=== PATIENT | male | born 1965 | race Caucasian/White ===

== ENCOUNTER 2017-04-26 12:30 | Inpatient (IN) | payer MEDICAID, OTHER ==
[~2017-04-26] VITALS: Ht 182.9 cm; Wt 65.8 kg
[2017-04-26] MEDS ORDERED: ASPI-986 PO (12:58)
[2017-04-26] MEDS ORDERED: DOCU-150 PO (12:58)
[2017-04-26] MEDS ORDERED: SITA100T6 PO (12:58)
[2017-04-26] MEDS ORDERED: INSULIN (12:58)
[2017-04-26 14:23] LABS: HEMATOCRIT. 27.3 % (42.0-52.0); HEMOGLOBIN. 8.8 g/dL (14.0-18.0); MEAN CORPUSCULAR HEMOGLOBIN 26.7 pg (28.0-32.0); MEAN CORPUSCULAR VOLUME 83.2 fL (80.0-94.0); PLATELET 345 x1000/uL (130-400); RED BLOOD CELL COUNT 3.28 mill/uL (4.7-6.1); RED CELL DISTRIBUTION WIDTH 14.8 % (11.6-14.6)
[2017-04-26 14:33] LABS: PARTIAL THROMBOPLASTIN TIME 30.6 sec (24.0-34.0); PROTHROMBIN TIME 9.9 sec
[2017-04-26 14:44] LABS: CARBON DIOXIDE 23 mEq/L (21-32); CHLORIDE 108 mEq/L (98-107)
[2017-04-26 15:07] LABS: CLARITY URINE CLEAR (CLEAR); COLOR URINE YELLOW (YELLOW); GLUCOSE URINE TRACE (NEGATIVE); KETONES URINE NEGATIVE (NEGATIVE); LEUKOCYTE ESTERASE URINE NEGATIVE (NEGATIVE); NITRITE URINE NEGATIVE (NEGATIVE); OCCULT BLOOD URINE NEGATIVE (NEGATIVE); PROTEIN URINE 2+ (NEGATIVE); SPECIFIC GRAVITY URINE 1.024 (1.005-1.030); UROBILINOGEN URINE 0.2 E.U./dL (0.2-1.0)
[2017-04-26] MEDS ORDERED: AMPICILLIN SOD/SULBACTAM NA 3 G in SODIUM CHLORIDE 0.9% 100 ML IV SCH (15:15)
[2017-04-26] MEDS ORDERED: CLONIDINE 0.1MG TABLET PO PRN (16:00)
[2017-04-26] MEDS ORDERED: DOCUSATE SODIUM 100MG CAPSULE PO PRN (16:00)
[2017-04-26] MEDS ORDERED: MAGNESIUM/ALUMINUM HYDROXIDE/SIMETHICONE 30ML UDC PO PRN (16:00)
[2017-04-26] MEDS ORDERED: ONDANSETRON HCL 4MG/2ML VIAL IV PRN (16:00)
[2017-04-26] MEDS ORDERED: IPRATROPIUM/ALBUTEROL 0.5-3(2.5)MG/3ML NEB INH PRN (16:00)
[2017-04-26 17:15] LABS: CARBON DIOXIDE 22 mEq/L (21-32); CHLORIDE 110 mEq/L (98-107)
[2017-04-26 17:30] LABS: PLATELET ESTIMATE NORMAL
[2017-04-26 18:55] VITALS: BP 148/88
[2017-04-26 20:00] VITALS: BP_SYST 122; BP_SYST 133; BP_DIAS 78
[2017-04-26] MEDS ORDERED: DEXTROSE 50% WATER 50ML SYRINGE IV PRN ×2 (20:15→22:45)
[2017-04-26] MEDS: ENOXAPARIN 40MG/0.4ML SYR SUBCUT SCH (20:42)
[2017-04-26] MEDS ORDERED: GABA-531 PO (20:45)
[2017-04-26] MEDS ORDERED: AMOX125S8 PO (20:46)
[2017-04-26] MEDS ORDERED: ZOLP10TA2 PO (20:49)
[2017-04-26] MEDS ORDERED: FERR-63 PO (20:50)
[2017-04-26] MEDS: INSULIN LISPRO 100 UNITS/ML SUBCUT SCH (21:00)
[2017-04-26] MEDS: BLOOD SUGAR DIAGNOSTIC STRIP TEST SCH (21:00)
[2017-04-26] MEDS: VANCOMYCIN 1250MG in DEXTROSE 5% WATER 250ML IV SCH (22:26)
[2017-04-26] MEDS: SODIUM CHLORIDE 0.9% 1,000 ML IV SCH (22:28)
[2017-04-26] MEDS ORDERED: INSULIN LISPRO 100 UNITS/ML SUBCUT SCH (22:30)
[2017-04-26 23:01] LABS: CLARITY URINE CLEAR (CLEAR); COLOR URINE YELLOW (YELLOW); GLUCOSE URINE NEGATIVE (NEGATIVE); KETONES URINE NEGATIVE (NEGATIVE); LEUKOCYTE ESTERASE URINE NEGATIVE (NEGATIVE); NITRITE URINE NEGATIVE (NEGATIVE); OCCULT BLOOD URINE TRACE (NEGATIVE); PROTEIN URINE 2+ (NEGATIVE); SPECIFIC GRAVITY URINE 1.021 (1.005-1.030); UROBILINOGEN URINE 0.2 E.U./dL (0.2-1.0)
[2017-04-26 23:31] LABS: *AMPHETAMINES SCREEN URINE NEGATIVE (NEGATIVE); *BARBITURATES SCREEN URINE NEGATIVE (NEGATIVE); *BENZODIAZEPINES SCREEN URINE NEGATIVE (NEGATIVE); *COCAINE SCREEN URINE PRESUMTIVE POSITIVE (NEGATIVE); CANNABINOID URINE SCREEN NEGATIVE (NEGATIVE); METHADONE URINE SCREEN NEGATIVE (NEGATIVE); OPIATES URINE SCREEN NEGATIVE (NEGATIVE); PHENCYCLIDINE URINE SCREEN NEGATIVE (NEGATIVE)
[2017-04-27] VITALS (7 sets, daily range): BP systolic 122–154; BP diastolic 73–94
[2017-04-27] MEDS: PIPERACILLIN/TAZ 3.375G PREMIX 50 ML IV SCH ×5 (00:34→23:11)
[2017-04-27] MEDS: ACETAMINOPHEN 325MG TABLET PO PRN (01:58)
[2017-04-27] MEDS: BLOOD SUGAR DIAGNOSTIC STRIP TEST SCH ×4 (06:37→21:08)
[2017-04-27 06:45] LABS: BASOPHILS % 0.9 % (0.0-2.0); EOSINOPHILS % 1.6 % (0.0-5.0); HEMATOCRIT. 26.9 % (42.0-52.0); HEMOGLOBIN. 8.8 g/dL (14.0-18.0); LYMPHOCYTES % 15.3 % (20.0-50.0); MEAN CORPUSCULAR VOLUME 82.9 fL (80.0-94.0); MEAN PLATELET VOLUME 8.3 fl (7.4-10.4); MONOCYTES % 8.8 % (2.0-8.0); NEUTROPHILS % 73.4 % (40.0-76.0); PLATELET 324 x1000/uL (130-400); RED BLOOD CELL COUNT 3.25 mill/uL (4.7-6.1); RED CELL DISTRIBUTION WIDTH 14.9 % (11.6-14.6)
[2017-04-27] MEDS: INSULIN LISPRO 100 UNITS/ML SUBCUT SCH ×4 (07:50→21:13)
[2017-04-27] MEDS ORDERED: AMOXICILLIN 125 MG/5 ML 100 ML BOTTLE PO SCH (09:00)
[2017-04-27] MEDS: ASPIRIN 325MG TABLET PO SCH (09:32)
[2017-04-27] MEDS: VANCOMYCIN 1250MG in DEXTROSE 5% WATER 250ML IV SCH ×2 (09:32→21:08)
[2017-04-27] MEDS: DOCUSATE SODIUM 100MG CAPSULE PO SCH (09:33)
[2017-04-27] MEDS: GABAPENTIN 300MG CAPSULE PO SCH ×3 (09:33→17:38)
[2017-04-27] MEDS: FERROUS SULFATE 325MG TABLET PO SCH (09:33)
[2017-04-27] MEDS: SODIUM CHLORIDE 0.9% 1,000 ML IV SCH ×2 (09:34→21:08)
[2017-04-27] MEDS: HYDROCODONE/ACETAMINOPHEN 5/325MG TABLET PO PRN ×2 (09:34→19:46)
[2017-04-27] MEDS ORDERED: MEDICATION NOT ON FORMULARY EA (Zolpidem Tartrate (Ambien Pak) 10 MG) PO SCH (10:45)
[2017-04-27] MEDS ORDERED: TETANUS, DIPHTHERIA, PERTUSSIS VAC/PF 0.5ML (>7YR OLD) IM ONE (16:15)
[2017-04-27] MEDS: ENOXAPARIN 40MG/0.4ML SYR SUBCUT SCH (17:38)
[2017-04-27] MEDS ORDERED: BLOOD SUGAR DIAGNOSTIC STRIP TEST SCH (22:30)
[2017-04-27] MEDS: ZOLPIDEM TARTRATE 5MG TABLET PO PRN (23:11)
[2017-04-28] VITALS: BP 138/79
[2017-04-28] MEDS: PIPERACILLIN/TAZ 3.375G PREMIX 50 ML IV SCH ×4 (06:12→23:56)
[2017-04-28] MEDS: ACETAMINOPHEN 325MG TABLET PO PRN (06:38)
[2017-04-28] MEDS: BLOOD SUGAR DIAGNOSTIC STRIP TEST SCH ×4 (06:39→21:31)
[2017-04-28] MEDS: INSULIN LISPRO 100 UNITS/ML SUBCUT SCH ×4 (07:50→21:00)
[2017-04-28 08:00] VITALS: BP 121/71
[2017-04-28] MEDS: ASPIRIN 325MG TABLET PO SCH (08:49)
[2017-04-28] MEDS: GABAPENTIN 300MG CAPSULE PO SCH ×3 (08:49→18:31)
[2017-04-28] MEDS: VANCOMYCIN 1250MG in DEXTROSE 5% WATER 250ML IV SCH ×2 (08:49→21:26)
[2017-04-28] MEDS: DOCUSATE SODIUM 100MG CAPSULE PO SCH (08:49)
[2017-04-28] MEDS: FERROUS SULFATE 325MG TABLET PO SCH (08:49)
[2017-04-28] MEDS: SODIUM CHLORIDE 0.9% 1,000 ML IV SCH (10:11)
[2017-04-28 12:00] VITALS: BP 122/70
[2017-04-28 16:00] VITALS: BP 124/76
[2017-04-28] MEDS: ENOXAPARIN 40MG/0.4ML SYR SUBCUT SCH (18:32)
[2017-04-28] MEDS: HYDROCODONE/ACETAMINOPHEN 5/325MG TABLET PO PRN ×2 (18:33→21:24)
[2017-04-28 20:00] VITALS: BP 101/75
[2017-04-28] MEDS: SILVER SULFADIAZINE 1% CREAM 50GM TOP SCH (21:00)
[2017-04-28] MEDS: ZOLPIDEM TARTRATE 5MG TABLET PO PRN (23:55)
[2017-04-29] VITALS: BP 123/74
[2017-04-29] MEDS: SODIUM CHLORIDE 0.9% 1,000 ML IV SCH (06:27)
[2017-04-29] MEDS: PIPERACILLIN/TAZ 3.375G PREMIX 50 ML IV SCH ×2 (06:27→12:06)
[2017-04-29] MEDS: BLOOD SUGAR DIAGNOSTIC STRIP TEST SCH ×2 (06:28→12:06)
[2017-04-29] MEDS: INSULIN LISPRO 100 UNITS/ML SUBCUT SCH ×2 (07:34→13:24)
[2017-04-29 08:00] VITALS: BP 123/77
[2017-04-29] MEDS: GABAPENTIN 300MG CAPSULE PO SCH ×2 (08:30→13:21)
[2017-04-29] MEDS: VANCOMYCIN 1250MG in DEXTROSE 5% WATER 250ML IV SCH (08:30)
[2017-04-29] MEDS: FERROUS SULFATE 325MG TABLET PO SCH (08:30)
[2017-04-29] MEDS: ASPIRIN 325MG TABLET PO SCH (08:30)
[2017-04-29] MEDS: DOCUSATE SODIUM 100MG CAPSULE PO SCH (08:30)
[2017-04-29 11:49] LABS: FOLIC ACID (FOLATE) SERUM 10.2 ng/mL (>5.38)
[2017-04-29 12:00] VITALS: BP 116/73
[2017-04-29 12:53] VITALS: BP 123/77
[2017-04-29 13:35] LABS: CARCINO EMBRYONIC ANTIGEN 2.5 ng/ml
[2017-04-29] MEDS: SILVER SULFADIAZINE 1% CREAM 50GM TOP SCH (14:22)
== END 2017-04-29 15:25 | disposition home health service (06) | DRG 720 ==
LOC: ER 12:30 → 6EST 15:09 → EDBEDREQ 15:47 → EDBEDREQTM 15:47 → ENRESERV 16:12
PROVIDERS: ADMIT Internal Medicine; ATTEND Internal Medicine
PROC: 0JBQ0ZZ Excision of Right Foot Subcutaneous Tissue and Fascia, Open Approach (ICD-10-PCS; principal; 2017-04-28)
DX: A41.9 Sepsis, unspecified organism (principal); E11.42 Type 2 diabetes mellitus with diabetic polyneuropathy; F03.90 Unspecified dementia, unspecified severity, without behavioral disturbance, psychotic disturbance, mood disturbance, and anxiety; E11.621 Type 2 diabetes mellitus with foot ulcer; D50.9 Iron deficiency anemia, unspecified; F14.90 Cocaine use, unspecified, uncomplicated; L89.899 Pressure ulcer of other site, unspecified stage; E44.1 Mild protein-calorie malnutrition; L03.115 Cellulitis of right lower limb; D63.8 Anemia in other chronic diseases classified elsewhere; G47.00 Insomnia, unspecified; Z81.8 Family history of other mental and behavioral disorders; Z79.84 Long term (current) use of oral hypoglycemic drugs; Z79.4 Long term (current) use of insulin; Z87.891 Personal history of nicotine dependence; Z79.82 Long term (current) use of aspirin; Z79.899 Other long term (current) drug therapy; Z89.422 Acquired absence of other left toe(s); Z68.1 Body mass index [BMI] 19.9 or less, adult; M86.9 Osteomyelitis, unspecified
CPT/HCPCS: 36415; 71010; 73630; 73721; 80048; 80053; 80061; 80202; 80305; 81001; 82378; 82607; 82728; 82746; 82962; 83036; 83540; 83550; 83605; 84443; 85025; 85044; 85610; 85651; 85730; 86140; 87040; 87070; 87077; 87086; 87205; 90715; 93970; 99285; A6261; J0295; J1650; J1815; J2405; J2543; J3370; J7030; J7040; J7050; J7060

== ENCOUNTER 2017-05-18 14:14 | Emergency (ER) | payer OTHER ==
[~2017-05-18] VITALS: Ht 182.9 cm; Wt 63.0 kg
[~2017-05-18 14:14] MED LIST: ASPI-986 PO; DOCU-150 PO; FERR-63 PO; GABA-531 PO; INSULIN; SITA100T6 PO; ZOLP10TA2 PO
[2017-05-18] MEDS ORDERED: SODIUM CHLORIDE 0.9% 1,000 ML IV ONE (14:45)
[2017-05-18 15:44] LABS: BASOPHILS % 1.2 % (0.0-2.0); EOSINOPHILS % 3.7 % (0.0-5.0); HEMATOCRIT. 25.9 % (42.0-52.0); HEMOGLOBIN. 8.5 g/dL (14.0-18.0); LYMPHOCYTES % 15.9 % (20.0-50.0); MEAN CORPUSCULAR HEMOGLOBIN 26.8 pg (28.0-32.0); MEAN CORPUSCULAR VOLUME 81.8 fL (80.0-94.0); MEAN PLATELET VOLUME 8.2 fl (7.4-10.4); MONOCYTES % 6.1 % (2.0-8.0); NEUTROPHILS % 73.1 % (40.0-76.0); PLATELET 317 x1000/uL (130-400); RED BLOOD CELL COUNT 3.17 mill/uL (4.7-6.1); RED CELL DISTRIBUTION WIDTH 16.3 % (11.6-14.6)
[2017-05-18 15:45] LABS: PROTHROMBIN TIME 10.4 sec
[2017-05-18 15:46] LABS: CHLORIDE 107 mEq/L (98-107)
[2017-05-18 15:49] LABS: CARBON DIOXIDE 23 mEq/L (21-32); ETHANOL BLOOD < 10 mg/dL
[2017-05-18 15:54] LABS: TROPONIN I < 0.02 ng/mL (0.00-0.04)
[2017-05-18 17:21] VITALS: BP 161/96
== END 2017-05-18 18:38 | disposition home or self-care (01) ==
LOC: CANBEDREQ 17:38 → ER 18:13
DX: E86.0 Dehydration (principal); I95.9 Hypotension, unspecified; D64.9 Anemia, unspecified; F14.10 Cocaine abuse, uncomplicated; E11.9 Type 2 diabetes mellitus without complications; Z79.4 Long term (current) use of insulin; Z89.421 Acquired absence of other right toe(s)
CPT/HCPCS: 36415; 71010; 80053; 83605; 83880; 84484; 85025; 85610; 87040; 93005; 96360; 99285; G0482; J7030; Z7610

== ENCOUNTER 2017-06-14 11:01 | Emergency (ER) | payer OTHER ==
[~2017-06-14] VITALS: Ht 182.9 cm; Wt 68.0 kg
[~2017-06-14 11:01] MED LIST changes: +SITA100T11 PO; -SITA100T6 PO
[2017-06-14] MEDS: BACITRACIN ZINC OINT UDPKT TOP ONE (14:30)
[2017-06-14 16:05] VITALS: BP 125/64
== END 2017-06-14 16:06 | disposition home or self-care (01) ==
LOC: ER 11:16
DX: M79.671 Pain in right foot (principal); M54.9 Dorsalgia, unspecified; E11.9 Type 2 diabetes mellitus without complications; F14.10 Cocaine abuse, uncomplicated; Z79.82 Long term (current) use of aspirin
CPT/HCPCS: 99283; Z7610

== ENCOUNTER 2023-12-17 17:53 | Inpatient (IN) | payer OTHER ==
[~2023-12-17] VITALS: Ht 182.9 cm; Wt 54.4 kg
[~2023-12-17 17:53] MED LIST changes: -GABA-531 PO; +GABA-532 PO
[2023-12-17 17:58] VITALS: O2SAT 95
[2023-12-17 18:38] LABS: CLARITY URINE CLEAR (CLEAR); COLOR URINE YELLOW (YELLOW); GLUCOSE URINE 3+ (NEGATIVE); KETONES URINE NEGATIVE (NEGATIVE); LEUKOCYTE ESTERASE URINE NEGATIVE (NEGATIVE); NITRITE URINE NEGATIVE (NEGATIVE); OCCULT BLOOD URINE NEGATIVE (NEGATIVE); PH URINE 5.5 (4.5-8.0); PROTEIN URINE 1+ (NEGATIVE); SPECIFIC GRAVITY URINE 1.025 (1.005-1.030)
[2023-12-17 18:56] LABS: BACTERIA URINE NONE SEEN; RBC URINE 0-2 /hpf (0-2); SQUAMOUS EPITHELIAL CELL URINE 1+ /lpf (RARE/1+); WBC URINE 0-2 /hpf (0-2)
[2023-12-17 20:14] LABS: BASOPHILS % 1.1 % (0.0-2.0); EOSINOPHILS % 1.5 % (0.0-5.0); HEMATOCRIT. 37.3 % (42.0-52.0); HEMOGLOBIN. 12.6 g/dL (14.0-18.0); LYMPHOCYTES % 10.8 % (20.0-50.0); MEAN CORPUSCULAR HGB CONC 33.8 g/dL (31.0-37.0); MEAN CORPUSCULAR VOLUME 88.8 fL (80.0-94.0); MEAN PLATELET VOLUME 8.4 fl (7.4-10.4); MONOCYTES % 7.3 % (2.0-8.0); NEUTROPHILS % 79.3 % (40.0-76.0); PLATELET 332 x1000/uL (130-400); RED CELL DISTRIBUTION WIDTH 12.9 % (11.6-14.6); WHITE BLOOD COUNT 9.6 x1000/uL (4.5-11.0)
[2023-12-17 20:28] LABS: ALANINE AMINOTRANSFERASE 8 IU/L (10-49); ALBUMIN 4.3 g/dL (3.2-4.8); ASPARTATE AMINOTRANSFERASE 12 IU/L (<34); BILIRUBIN TOTAL 0.3 mg/dL (0.1-1.0); CALCIUM 9.1 mg/dL (8.7-10.4); CARBON DIOXIDE 28 mEq/L (21-32); CHLORIDE 99 mEq/L (98-107); CREATININE 2.4 mg/dL (0.6-1.3); POTASSIUM 4.7 mEq/L (3.5-5.1); SODIUM 134 mEq/L (136-145); UREA NITROGEN BLOOD 24 mg/dL (9-23)
[2023-12-17 20:30] LABS: GLUCOSE 365 mg/dL (70-105)
[2023-12-18] MEDS: PIPERACILLIN/TAZO 3.375G/50ML 50 ML IV NR (00:11)
[2023-12-18] MEDS: GABAPENTIN 300MG CAPSULE PO ONE (00:17)
[2023-12-18] MEDS: VANCOMYCIN 1G PREMIX 200 ML IV NR (00:44)
[2023-12-18] MEDS: HYDROCODONE/ACETAMINOPHEN 10/325MG TABLET PO PRN (03:11)
[2023-12-18] MEDS: BLOOD SUGAR DIAGNOSTIC STRIP TEST SCH (09:22)
[2023-12-18] MEDS: INSULIN LISPRO 100 UNITS/ML SUBCUT SCH (09:23)
[2023-12-18] MEDS: AMLODIPINE 10MG TABLET PO SCH (09:34)
[2023-12-18] MEDS: INSULIN GLARGINE 100 UNITS/ML SUBCUT SCH (09:35)
[2023-12-18 12:00] VITALS: BP 101/62; PULSE 60; RESP 20; TEMP 97.9
[2023-12-18] MEDS: PIPERACILLIN/TAZO 3.375G/50ML 50 ML IV SCH (12:03)
[2023-12-18] MEDS: GABAPENTIN 300MG CAPSULE PO SCH (14:43)
[2023-12-18] MEDS: VANCOMYCIN 500MG/100ML IV NR (15:42)
[2023-12-18 16:00] VITALS: BP 101/62; PULSE 60; RESP 20; TEMP 98
[2023-12-18 16:37] VITALS: BP 149/98; PULSE 67; RESP 18; TEMP 97.8
[2023-12-18 20:00] VITALS: BP 134/81; PULSE 69; RESP 20; TEMP 98.1
[2023-12-18] MEDS: ATORVASTATIN CALCIUM 40MG TABLET PO SCH (21:27)
[2023-12-18] MEDS: DEXTROSE 50% WATER 50ML SYRINGE IV PRN (22:32)
[2023-12-18] MEDS: DEXT 5%/0.45% NACL 1000ML 1,000 ML IV SCH (23:00)
[2023-12-19] VITALS: BP 112/66; PULSE 69; RESP 18; TEMP 95.1
[2023-12-19] MEDS ORDERED: GABA800T97 MT (02:38)
[2023-12-19 04:00] VITALS: BP 122/73; PULSE 62; RESP 18; TEMP 97.9
[2023-12-19] MEDS: GABAPENTIN 400MG CAPSULE PO SCH (04:12)
[2023-12-19] MEDS ORDERED: POLYMYXIN B SULFATE 500000 UNITS/VIAL ONE (07:10)
[2023-12-19] MEDS ORDERED: BUPIVACAINE HCL/PF 0.5% (5MG/ML) 10ML ONE (07:10)
[2023-12-19] MEDS ORDERED: LIDOCAINE HCL 1% 20ML VIAL (Pyxis) INJ ONE (07:10)
[2023-12-19] MEDS ORDERED: LIDOCAINE HCL 1% 10 MG/ML 10ML VIAL ONE (07:27)
[2023-12-19] MEDS ORDERED: PROPOFOL 200MG/20ML VIAL IV ONE (07:27)
[2023-12-19] MEDS ORDERED: DEXAMETHASONE 4MG/ML 1ML VIAL ONE (07:27)
[2023-12-19] MEDS ORDERED: ONDANSETRON HCL 4MG/2ML INJ ONE (07:27)
[2023-12-19] MEDS ORDERED: METOCLOPRAMIDE HCL 10MG/2ML VIAL ONE (07:27)
[2023-12-19] MEDS ORDERED: FENTANYL CITRATE/PF 50MCG/ML 2ML VIAL ONE (07:27)
[2023-12-19 07:28] LABS: ALANINE AMINOTRANSFERASE < 7 IU/L (10-49); ALBUMIN 3.6 g/dL (3.2-4.8); ASPARTATE AMINOTRANSFERASE 11 IU/L (<34); BILIRUBIN TOTAL 0.3 mg/dL (0.1-1.0); CALCIUM 8.8 mg/dL (8.7-10.4); CARBON DIOXIDE 31 mEq/L (21-32); CHLORIDE 100 mEq/L (98-107); CREATININE 1.8 mg/dL (0.6-1.3); GLUCOSE 274 mg/dL (70-105); POTASSIUM 4.5 mEq/L (3.5-5.1); PROTEIN TOTAL 6.8 g/dL (6.0-8.3); SODIUM 136 mEq/L (136-145); UREA NITROGEN BLOOD 23 mg/dL (9-23)
[2023-12-19] MEDS ORDERED: CEFAZOLIN SODIUM 1000MG/VIAL ONE (07:42)
[2023-12-19] MEDS ORDERED: NALOXONE HCL 0.4MG/ML VIAL IV PRN (08:30)
[2023-12-19] MEDS ORDERED: FENTANYL CITRATE/PF 50MCG/ML 2ML VIAL IV PRN (09:00)
[2023-12-19] MEDS: FOLIC ACID 1MG TABLET PO SCH (10:09)
[2023-12-19] MEDS: ASPIRIN 81MG TABLET PO SCH (10:09)
[2023-12-19] MEDS: VANCOMYCIN 1GM/200ML PMX (BAXTER) IV SCH (13:03)
[2023-12-19] MEDS ORDERED: PIPERACILLIN/TAZO 3.375G/50ML 50 ML IV SCH (15:00)
[2023-12-19 15:27] VITALS: BP 106/63; PULSE 79; RESP 19; TEMP 97.9
[2023-12-19] MEDS ORDERED: AMOX1TAB16 MT (18:48)
[2023-12-19] MEDS: PIPERACILLIN/TAZO 3.375G/50ML 50 ML IV SCH (19:02)
[2023-12-19 20:00] VITALS: BP 102/63; PULSE 83; RESP 20; TEMP 98.8
[2023-12-19] MEDS: INSULIN GLARGINE 100 UNITS/ML SUBCUT SCH (21:22)
[2023-12-20] VITALS: BP 103/63; PULSE 81; RESP 20; TEMP 100
[2023-12-20] MEDS: ZOLPIDEM TARTRATE 5MG TABLET PO PRN (01:52)
[2023-12-20 04:00] VITALS: BP 116/68; PULSE 71; RESP 20; TEMP 99.3
[2023-12-20 06:47] LABS: CALCIUM 8.4 mg/dL (8.7-10.4); CREATININE 1.4 mg/dL (0.6-1.3); POTASSIUM 3.8 mEq/L (3.5-5.1)
[2023-12-20 08:00] VITALS: BP 135/75; PULSE 69; RESP 19; TEMP 98.2
== END 2023-12-20 15:48 | disposition home health service (06) | DRG 383 ==
LOC: ER 17:53 → 6EST 12-18 01:48
PROVIDERS: ADMIT Internal Medicine; ATTEND Internal Medicine
PROC: 0Y9M0ZX Drainage of Right Foot, Open Approach, Diagnostic (ICD-10-PCS; principal; 2023-12-19)
DX: L03.115 Cellulitis of right lower limb (principal); N17.0 Acute kidney failure with tubular necrosis; E11.621 Type 2 diabetes mellitus with foot ulcer; D64.9 Anemia, unspecified; I10 Essential (primary) hypertension; Z20.822 Contact with and (suspected) exposure to COVID-19; Z79.82 Long term (current) use of aspirin; Z79.84 Long term (current) use of oral hypoglycemic drugs; Z79.899 Other long term (current) drug therapy; Z85.038 Personal history of other malignant neoplasm of large intestine
CPT/HCPCS: 36415; 73630; 73721; 80048; 80053; 80202; 81003; 82962; 83036; 85025; 87070; 87075; 87077; 87106; 87116; 87186; 87426; 93005; 97022; 97161; 99285; J0690; J1100; J1815; J2405; J2543; J2704; J2765; J3010; J3370; J3490; J7030

== ENCOUNTER 2024-01-03 18:54 | Emergency (ER) | payer OTHER ==
[~2024-01-03] VITALS: Ht 182.9 cm; Wt 68.0 kg
[~2024-01-03 18:54] MED LIST changes: +AMOX1TAB16 MT; -GABA-532 PO; +GABA800T97 MT
[2024-01-03 18:58] VITALS: BP 158/97; PULSE 91; RESP 16; TEMP 98.8; O2SAT 100
[2024-01-03 20:37] LABS: BASOPHILS % 1.1 % (0.0-2.0); EOSINOPHILS % 1.9 % (0.0-5.0); HEMATOCRIT. 38.1 % (42.0-52.0); HEMOGLOBIN. 12.6 g/dL (14.0-18.0); LYMPHOCYTES % 10.3 % (20.0-50.0); MEAN CORPUSCULAR HEMOGLOBIN 29.5 pg (28.0-32.0); MEAN CORPUSCULAR HGB CONC 33.1 g/dL (31.0-37.0); MEAN PLATELET VOLUME 8.7 fl (7.4-10.4); MONOCYTES % 6.7 % (2.0-8.0); PLATELET 233 x1000/uL (130-400); RED BLOOD CELL COUNT 4.28 mill/uL (4.7-6.1); RED CELL DISTRIBUTION WIDTH 14.4 % (11.6-14.6); WHITE BLOOD COUNT 8.8 x1000/uL (4.5-11.0)
[2024-01-03 20:46] LABS: ALANINE AMINOTRANSFERASE 8 IU/L (10-49); ALBUMIN 4.6 g/dL (3.2-4.8); ASPARTATE AMINOTRANSFERASE 19 IU/L (<34); BILIRUBIN TOTAL 0.4 mg/dL (0.1-1.0); CALCIUM 9.3 mg/dL (8.7-10.4); CARBON DIOXIDE 27 mEq/L (21-32); CHLORIDE 105 mEq/L (98-107); CREATININE 1.6 mg/dL (0.6-1.3); GLUCOSE 100 mg/dL (70-105); POTASSIUM 4.5 mEq/L (3.5-5.1); SODIUM 138 mEq/L (136-145); UREA NITROGEN BLOOD 18 mg/dL (9-23)
== END 2024-01-03 23:17 | disposition home or self-care (01) ==
LOC: ER 18:54
DX: M79.89 Other specified soft tissue disorders (principal); D64.9 Anemia, unspecified; E11.9 Type 2 diabetes mellitus without complications; I10 Essential (primary) hypertension; F14.10 Cocaine abuse, uncomplicated; Z79.899 Other long term (current) drug therapy
CPT/HCPCS: 36415; 73630; 80053; 85025; 85651; 99284

== ENCOUNTER 2024-01-07 14:55 | Emergency (ER) | payer OTHER ==
[~2024-01-07] VITALS: Ht 182.9 cm; Wt 70.8 kg
[2024-01-07 15:01] VITALS: BP 110/75; RESP 16; TEMP 98.4; O2SAT 100
[2024-01-07 15:05] VITALS: PULSE 89
[2024-01-08] MEDS ORDERED: CARB100C9 MT (08:21)
== END 2024-01-07 17:35 | disposition left against medical advice (07) ==
LOC: ER 14:55
DX: M79.671 Pain in right foot (principal); Z53.21 Procedure and treatment not carried out due to patient leaving prior to being seen by health care provider
CPT/HCPCS: 99281

== ENCOUNTER 2024-01-08 05:11 | Emergency (ER) | payer OTHER ==
[~2024-01-08] VITALS: Ht 182.9 cm; Wt 71.0 kg
[2024-01-08 06:07] VITALS: O2SAT 100
[2024-01-08] MEDS ORDERED: CARB100C9 MT (08:21)
[2024-01-08] MEDS: CARBAMAZEPINE 100MG TABLET CHEW PO ONE (08:34)
[2024-01-08 08:40] VITALS: BP 145/90; PULSE 77; RESP 18; TEMP 98.2
== END 2024-01-09 11:46 | disposition home or self-care (01) ==
LOC: ER 05:11
DX: G50.0 Trigeminal neuralgia (principal); D64.9 Anemia, unspecified; E11.9 Type 2 diabetes mellitus without complications; F14.10 Cocaine abuse, uncomplicated; Z98.890 Other specified postprocedural states; Z79.899 Other long term (current) drug therapy
CPT/HCPCS: 99283

== ENCOUNTER 2025-09-18 15:05 | Emergency (ER) | payer OTHER ==
[~2025-09-18] VITALS: Ht 182.9 cm; Wt 80.0 kg
[~2025-09-18 15:05] MED LIST changes: +CARB100C9 MT; -DOCU-150 PO; +DOCU-422 PO
[2025-09-18 15:08] VITALS: O2SAT 98
[2025-09-18] MEDS: LIDOCAINE HCL 1% 20ML VIAL INFIL ONE (15:15)
[2025-09-18] MEDS: IOHEXOL-350 100 ML BOTTLE ONE (15:40)
[2025-09-18] MEDS: MORPHINE SULFATE 4 MG/ML INJ (FOR IV/IM USE) IV ONE (15:48)
[2025-09-18] MEDS: SODIUM CHLORIDE 0.9% 1,000 ML IV ONE (15:49)
[2025-09-18] MEDS: SODIUM CHLORIDE 0.9% 2,000 ML IV ONE (15:50)
[2025-09-18] MEDS: TETANUS, DIPHTHERIA, PERTUSSIS VAC/PF 0.5ML (>10YR OLD) IM ONE (15:50)
[2025-09-18] MEDS: FENTANYL CITRATE/PF 50MCG/ML 2ML VIAL IV ONE (16:13)
[2025-09-18 16:21] LABS: BASOPHILS % 0.7 % (0.0-2.0); EOSINOPHILS % 1.5 % (0.0-5.0); HEMATOCRIT. 42.1 % (42.0-52.0); HEMOGLOBIN. 14.6 g/dL (14.0-18.0); LYMPHOCYTES % 13.8 % (20.0-50.0); MEAN PLATELET VOLUME 8.2 fl (7.4-10.4); MONOCYTES % 6.0 % (2.0-8.0); NEUTROPHILS % 78.0 % (40.0-76.0); PLATELET 179 x1000/uL (130-400); RED BLOOD CELL COUNT 4.52 mill/uL (4.7-6.1); RED CELL DISTRIBUTION WIDTH 13.1 % (11.6-14.6)
[2025-09-18 16:32] LABS: CREATININE 1.4 mg/dL (0.6-1.3)
[2025-09-18 16:33] LABS: ETHANOL BLOOD < 10 mg/dL (<10); PROTEIN TOTAL 7.1 g/dL (6.0-8.3); UREA NITROGEN BLOOD 17 mg/dL (9-23)
[2025-09-18 16:34] LABS: ASPARTATE AMINOTRANSFERASE 63 IU/L (<34); INR 0.9
[2025-09-18 16:35] LABS: BILIRUBIN DIRECT 0.2 mg/dL (<=3.0); BILIRUBIN TOTAL 0.6 mg/dL (0.1-1.0)
[2025-09-18 16:39] LABS: TROPONIN I HIGH SENSITIVITY 71 ng/L (3.0-53)
[2025-09-18 18:00] VITALS: BP 153/106; PULSE 100; RESP 20; TEMP 36.8; O2SAT 97
[2025-09-18] MEDS ORDERED: IBUP-1455 MT (18:11)
[2025-09-18] MEDS ORDERED: LIDO700A30 TP (18:11)
[2025-09-18] MEDS ORDERED: METH-653 MT (18:11)
[2025-09-18] MEDS ORDERED: IOHEXOL-350 100 ML BOTTLE ONE (23:29)
[2025-09-18] MEDS ORDERED: IOHEXOL-300 100 ML BOTTLE ONE (23:31)
== END 2025-09-18 18:25 | disposition left against medical advice (07) ==
LOC: ER 15:05 → CMPBEDREQ 19:36
DX: S02.2XXA Fracture of nasal bones, initial encounter for closed fracture (principal); S01.81XA Laceration without foreign body of other part of head, initial encounter; D64.9 Anemia, unspecified; E11.9 Type 2 diabetes mellitus without complications; I10 Essential (primary) hypertension; F14.90 Cocaine use, unspecified, uncomplicated; Z79.899 Other long term (current) drug therapy; Z98.890 Other specified postprocedural states; W22.02XA Walked into lamppost, initial encounter; Y93.89 Activity, other specified; Y92.410 Unspecified street and highway as the place of occurrence of the external cause; Y99.9 Unspecified external cause status
CPT/HCPCS: 80076; 80048; 80320; 85025; 85610; 85730; 86850; 86900; 86901; 84484; 36415; 74174; 71045; 72170; 71275; 70450; 70486; 72125; 93005; 12015; 96361; 96374; 96375; 99285; J3010; Q9967 ×2; J2003; J2270; J7030; Z7610 ×3; G0480